=== PATIENT | male | born 1950 | race Caucasian/White ===

== ENCOUNTER 2016-07-17 13:44 | Emergency (ER) | payer OTHER ==
[~2016-07-17] VITALS: Ht 182.9 cm; Wt 82.6 kg
[2016-07-17 14:23] LABS: ABSOLUTE BASOPHIL COUNT 0.1 /CUMM (0.0-0.2); ABSOLUTE EOSINOPHIL COUNT 0.1 /CUMM (0.0-0.7); ABSOLUTE GRANULOCYTE CT 14.7 /CUMM (1.4-6.5); ABSOLUTE LYMPH COUNT 1.7 /CUMM (1.2-3.4); ABSOLUTE MONOCYTE COUNT 0.4 /CUMM (0.10-0.60); BASOPHIL % 0.6 % (0.0-2.0); EOSINOPHIL % 0.6 % (0-5); GRANULOCYTE % 86.7 % (42.2-75.2); HEMATOCRIT 46.8 % (42-52); MEAN CORPUSCULAR HGB 29.3 PG (27.0-31.0); MEAN CORPUSCULAR VOLUME 88.8 FL (80.0-94.0); MEAN PLATELET VOLUME 8.8 FL (7.4-10.4); PLATELET COUNT 228 /CUMM (130-400); RBC DISTRIBUTION WIDTH 15.7 % (11.5-14.5); RED BLOOD CELL CT 5.27 /CUMM (4.70-6.10)
--- NOTE | 2016-07-17 14:58 | RADIOLOGY REPORT ---
EXAMINATION: XR CHEST CLINICAL INFORMATION: 65-year-old male patient with cough and shortness of breath. COMPARISON: Last chest x-ray done 09/05/2013. (Normal). TECHNIQUE: PA and lateral views of the chest, 4 exposures. FINDINGS: No significant abnormality is noted involving the heart, lungs, mediastinum, bony thorax or soft tissues. There is incidental interposition of the colon between the anterior abdominal wall the liver. IMPRESSION: No pneumonia.
--- NOTE | 2016-07-17 17:07 | ED INFLUENZA/URI COMPLAINT ---
History of Present Illness General Chief Complaint: General Adult Stated Complaint: PT THINKS POSSIBLE PNEUMONIA Source: patient, old records Exam Limitations: no limitations Vital Signs & Intake/Output Vital Signs & Intake/Output Vital Signs Date Time Temp Pulse Resp B/P Pulse O2 O2 Flow FiO2 Ox Delivery Rate 07/17 1759 98.3 98 20 152/78 94 Room Air 07/17 1717 Room Air 07/17 1706 93 07/17 1655 98.1 100 20 151/91 92 Room Air 07/17 1357 97.1 92 20 148/70 94 Room Air Allergies Coded Allergies: NO KNOWN ALLERGIES (05/24/13) Reconcile Medications Albuterol Sulfate (Proair Hfa) 90 MCG HFA.AER.AD 2 PUF INH Q4-6 PRN PRN RESPIRATORY (Reported) Aspirin (Ecotrin*) 81 MG TABLET.DR 1 TAB PO DAILY HEART/BLOOD (Reported) Atorvastatin Calcium 20 MG TABLET 1 TAB PO DAILY CHOLESTEROL (Reported) Azithromycin (Zithromax) 250 MG TABLET 1 TAB PO DAILY BRONCHITIS Budesonide/Formoterol Fumarate (Symbicort 160-4.5 Mcg Inhaler) 160 MCG-4.5 MCG/ ACTUATION HFA.AER.AD 2 PUF INH BID RESPIRATORY (Reported) Carvedilol 25 MG TABLET 1 TAB PO BID BP (Reported) Cholecalciferol (Vitamin D3) (Vitamin D) 1,000 UNIT TABLET 1 TAB PO DAILY SUPPLEMENT (Reported) Ferrous Fumarate (Ferretts) 325 MG (106 MG) TABLET 1 TAB PO TID SUPPLEMENT ( Reported) Furosemide 20 MG TABLET 1 TAB PO DAILY DIURETIC (Reported) Hydralazine HCl 50 MG TABLET 1 TAB PO TID BP (Reported) Isosorbide Dinitrate 30 MG TABLET 1 TAB PO TID HEART/BP (Reported) Losartan Potassium 25 MG TABLET 1 TAB PO DAILY BP (Reported) Pantoprazole Sodium 40 MG TABLET.DR 1 TAB PO BID GI (Reported) Prednisone 20 MG TABLET 1 TAB PO AD BRONCHITIS 3 TABS PO DAY 1-2 2 TABS PO DAY 3-5 1 TAB PO DAY 6-8 Triage Note: PT STATES THAT HE HAS HAD A COUGH AND SOB X 1 WEEK, O2 SAT 94 % ON RA. PT STTAES THAT HE SMOKES ABOUT 4-5 CIGARETTES A DAY. AFEBRILE Triage Nurses Notes Reviewed? yes HPI: 65-year-old male who is a long-time smoker here with complaints of cough congestion shortness of breath and wheezing that has been going on for approximately one week. He denies any chest pain or palpitations. He denies any known fever. His symptoms are worse with exertion. He is coughing up sputum. His Symbicort is not helping him. He feels better at rest. Past History Travel History Traveled to [place] past 21 day No Medical History Any Pertinent Medical History? see below for history EENT: NONE Cardiovascular: NONE Respiratory: COPD Gastrointestinal: NONE Hepatic: NONE Renal: NONE Musculoskeletal: NONE Psychiatric: NONE Endocrine: NONE Blood Disorders: NONE Cancer(s): NONE [employer] OPERATOR/Reproductive: NONE History of MRSA: No History of VRE: No History of CDIFF: No Surgical History Surgical History: non-contributory Psychosocial History Who do you live with Patient/Self Services at Home None What is your primary language Greek Tobacco Use: Current Daily Use Daily Tobacco Use Amount/Type: => 5 Cigarettes daily ETOH Use: denies use Illicit Drug Use: denies illicit drug use Family History Family History, If Any: MOTHER FH: breast cancer FH: heart disease Hx Contributory? No Review of Systems Review of Systems Constitutional: Reports: see HPI. EENTM: Reports: no symptoms. Respiratory: Reports: see HPI. Cardiovascular: Reports: no symptoms. GI: Reports: no symptoms. Genitourinary: Reports: no symptoms. Musculoskeletal: Reports: no symptoms. Skin: Reports: no symptoms. Neurological/Psychological: Reports: no symptoms. Hematologic/Endocrine: Reports: no symptoms. Immunologic/Allergic: Reports: no symptoms. All Other Systems: Reviewed and Negative Physical Exam Physical Exam Ears, Nose, Throat: normal ENT inspection, moist mucous membrane Respiratory: decreased breath sounds, accessory muscle use, crackles, rhonchi, wheezing Cardiovascular: tachycardia (100 BPM) Comments: Well-developed well-nourished no apparent distress. HEENT: Atraumatic, extraocular motion intact Neck: Supple, no lymphadenopathy Back: Nontender Respiratory: No respiratory distress Extremities: No edema, full range of motion Neuro: Alert and oriented x3 Psych: Mood affect normal, normal memory normal judgment. Skin: Warm and dry, no rash on exposed skin Core Measures Severe Sepsis Present: No Septic Shock Present: No Progress Differential Diagnosis: influenza, meningitis, neutropenia, otitis, pneumonia, pharyngitis, sinusitis Plan of Care: Orders Procedure Date/time Status TROPONIN LEVEL 03/16 1405 Complete COMPREHENSIVE METABOLIC PANEL 07/17 1405 Complete CBC WITHOUT DIFFERENTIAL 07/17 1405 Complete EKG 07/17 1348 Active Laboratory Tests 07/17/16 1409: Anion Gap 9, Estimated GFR 38 L, BUN/Creatinine Ratio 14.4, Glucose 147 H, Calcium 9.6, Total Bilirubin 0.9, AST 15 L, ALT 29, Alkaline Phosphatase 83, Troponin I < 0.01, Total Protein 6.3, Albumin 3.7, Globulin 2.6, Albumin/ Globulin Ratio 1.4, CBC w Diff MAN DIFF ORDERED, RBC 5.27, MCV 88.8, MCH 29.3, RDW 15.7 H, MPV 8.8, Gran % 86.7 H, Lymphocytes % 9.9 L, Monocytes % 2.2, Eosinophils % 0.6, Basophils % 0.6, Absolute Granulocytes 14.7 H, Absolute Lymphocytes 1.7, Absolute Monocytes 0.4, Absolute Eosinophils 0.1, Absolute Basophils 0.1, Platelet Estimate VERIFIED BY SMEAR, Anisocytosis 1+, PUBS MCHC 33.0 Initial ED EKG: SINUS TACHYCARDIA 108 BPM, A NEW RIGHT BUNDLE-BRANCH BLOCK IS NOTED. nO SIGNIFICANT st OR t-WAVE CHANGES. Prior EKG: changed (rIGHT BUNDLE) Rhythm Strip: sinus tachycardia Comments: DuoNeb treatment given and 60 mg of prednisone by mouth given. Patient reevaluated, he is feeling much better, so O2 sat is in the high 90s. His tachypnea has resolved. His lungs are more clear although he still has mild wheezing. Smoking cessation counseling was discussed. We will treat him for bronchitis, given Zithromax 500 mg here. Will continue Zithromax and prednisone as outpatient, continue SYMBICORT. Return with worsening symptoms or infectious symptoms. Departure Departure Disposition: HOME OR SELF CARE Condition: Stable Clinical Impression Primary Impression: Bronchitis Referrals: ZEESHAN DICK (PCP/Family) Additional Instructions: Take antibiotics for your infection as directed. Take prednisone as directed, start both tomorrow as you were given doses already this evening. Continue her Symbicort Return to the ER if you're feeling worsening shortness of breath, fever, flulike illness Motrin and Tylenol as needed for fever. Drink plenty of fluids. Return or follow-up with your doctor if not better in the next 3-5 days or if you're having continued worsening fevers, nausea, vomiting, shortness of breath, abdominal pain, difficulty swallowing or drinking or worsening flulike illness. Departure Forms: Customer Survey General Discharge Information Prescriptions: Current Visit Scripts Azithromycin (Zithromax) 1 TAB PO DAILY #4 TAB Prednisone 1 TAB PO AD #15 TAB 3 TABS PO DAY 1-2 2 TABS PO DAY 3-5 1 TAB PO DAY 6-8
[2016-07-17] MEDS ORDERED: ZITHROMAX250 M2 PO (17:57)
[2016-07-17] MEDS ORDERED: PREDNISONE20 M1 PO (17:57)
[2016-07-17 17:59] VITALS: BP 152/78
[2016-07-17] MEDS ORDERED: ATORVASTATIN CA20 M1 PO (18:06)
[2016-07-17] MEDS ORDERED: SYMBICORT 16010.2 GM INH (18:06)
[2016-07-17] MEDS ORDERED: LOSARTAN POTASS25 M1 PO (18:06)
[2016-07-17] MEDS ORDERED: CARVEDILOL25 M1 PO (18:07)
[2016-07-17] MEDS ORDERED: FUROSEMIDE20 M1 PO (18:07)
[2016-07-17] MEDS ORDERED: ISOSORBIDE DINI30 M1 PO (18:07)
[2016-07-17] MEDS ORDERED: PROAIR HFA8.5 GM INH (18:07)
[2016-07-17] MEDS ORDERED: HYDRALAZINE HCL50 M1 PO (18:07)
[2016-07-17] MEDS ORDERED: FERRETTS106 MG PO (18:08)
[2016-07-17] MEDS ORDERED: PANTOPRAZOLE SO40 M1 PO (18:08)
[2016-07-17] MEDS ORDERED: VITAMIN D1000 UNIT PO (18:09)
[2016-07-17] MEDS ORDERED: ASPIRIN EC81 M1 PO (18:09)
== END 2016-07-17 18:10 ==
LOC: ERH 13:44
PROVIDERS: Emergency Medicine
DX: J40 Bronchitis, not specified as acute or chronic (principal); Z72.0 Tobacco use
CPT/HCPCS: 1263; 93005; 93010; J0456